=== PATIENT | female | born 1935 | race Caucasian/White ===

== ENCOUNTER → 2017-03-16 | Outpatient (CLI) | payer OTHER ==
[~2017-03-16] MED LIST: ASPIRIN81 M1 PO; Alphagan P 0.15% Oph BOTH EYES; Aspirin PO; CLEOCIN300 MG PO; CLINDAMYCIN HC300 MG PO; Calcium Carbonate,Ca PO; Cardizem CD,Cartia X PO; Colace PO; Coumadin Protocol PO; Ecotrin PO; Erythromycin Ophth O LEFT EYE; GLIPIZIDE10 MG PO; Glucophage PO; Humulin R SC; INVanz IV; KLOR-CON 1010 ME1 PO; LASIX40 MG PO; LEVOFLOXACIN; LISINOPRIL10 MG PO; Lasix PO; METFORMIN HCL PO; MULTIVITAMIN1 EAC2 PO; OMEGA 3-6-91200 MG PO; PRAVACHOL40 MG PO; Santyl TP; TENORMIN25 MG PO; TYLENOL REGULA325 MG PO; Tums,OsCal PO; WARFARIN SODIUM
== END | disposition home or self-care (01) ==
LOC: RAD 15:49
DX: M19.072 Primary osteoarthritis, left ankle and foot (principal); M25.475 Effusion, left foot
CPT/HCPCS: 73630

== ENCOUNTER 2017-06-09 17:24 | Observation (INO) | payer OTHER ==
[~2017-06-09] VITALS: Ht 167.6 cm; Wt 94.7 kg
[~2017-06-09 17:24] MED LIST changes: +ALPHAGAN P100 DROP/1 BOTH EYES; -Alphagan P 0.15% Oph BOTH EYES; +COLACE100 MG PO; -Calcium Carbonate,Ca PO; -Colace PO; +SUPER CALCIUM600 MG PO
[2017-06-09 20:56] LABS: HEMATOCRIT 39.6 % (36.0-46.0); HEMOGLOBIN 13.7 G/DL (11.9-15.5); MCH 31.2 PG (29.0-34.0); MCHC 34.6 G/DL (30.0-36.0); MCV 90.2 FL (83-99); PLATELET COUNT 333 K/uL (156-360); RBC DIS.WIDTH-SD 43.1 % (39-53); RED BLOOD COUNT 4.39 M/uL (3.80-5.20); WHITE BLOOD COUNT 13.5 K/uL (4.1-10.2)
[2017-06-09 21:10] LABS: CHLORIDE 103 mEq/L (99-109); POTASSIUM 4.1 mEq/L (3.7-5.4); SODIUM 140 mEq/L (136-147)
[2017-06-09 21:11] LABS: GLUCOSE 166 mg/dL (70-99)
[2017-06-09 21:15] LABS: GFR ESTIMATE (CALCULATED) 57 mL/min/
[2017-06-09 21:16] LABS: UREA NITROGEN (BUN) 18 mg/dL (9-23)
[2017-06-09] MEDS ORDERED: XARELTO20 MG PO (22:25)
[2017-06-09] MEDS ORDERED: METFORMIN HCL500 MG PO (22:26)
[2017-06-09] MEDS ORDERED: MICRO-K10 ME2 PO (22:26)
[2017-06-09] MEDS ORDERED: FUROSEMIDE40 MG PO (22:26)
[2017-06-09] MEDS ORDERED: PRAVACHOL10 MG PO (22:27)
[2017-06-09] MEDS ORDERED: AMOX TR-K CLV1 EAC4 PO (22:27)
[2017-06-09] MEDS ORDERED: LISINOPRIL2.5 MG PO (22:28)
[2017-06-09] MEDS ORDERED: CARDIZEM CD,CA180 MG PO (22:28)
[2017-06-09] MEDS ORDERED: LANTUS 3 M100 UNITS1 SC (22:29)
[2017-06-09] MEDS ORDERED: ALPHAGAN 0100 DROP/5 BOTH EYES (22:30)
[2017-06-09] MEDS ORDERED: LASIX40 MG PO (22:32)
[2017-06-09] MEDS ORDERED: VITAMIN B12 100MCG PO (22:36)
[2017-06-09 23:00] LABS: APPEARANCE SL.HAZY ((CLEAR)); BILIRUBIN NEGATIVE; BLOOD SMALL; COLOR YELLOW ((YELLOW)); GLUCOSE (STRIP) NEGATIVE; KETONES NEGATIVE; LEUKOCYTES MODERATE; NITRITE NEGATIVE; PROTEIN (STRIP) NEGATIVE; SPECIFIC GRAVITY 1.014 (1.000-1.030); UROBILINOGEN 0.2 MG/DL (0.2-1.0)
[2017-06-09 23:03] LABS: BACTERIA RARE /HPF; EPITHELIAL CELLS 2+ /HPF; HYALINE CASTS 15-20 /LPF; MUCUS 1+ /LPF
[2017-06-10 02:00] VITALS: BP 158/72
[2017-06-10 03:56] VITALS: BP 137/64
[2017-06-10 06:46] LABS: HEMATOCRIT 37.6 % (36.0-46.0); HEMOGLOBIN 12.5 G/DL (11.9-15.5); MCHC 33.2 G/DL (30.0-36.0); MCV 90.2 FL (83-99); PLATELET COUNT 335 K/uL (156-360); RBC DIS.WIDTH-CV 12.9 % (11.8-14.6); RBC DIS.WIDTH-SD 42.7 % (39-53); RED BLOOD COUNT 4.17 M/uL (3.80-5.20); WHITE BLOOD COUNT 10.6 K/uL (4.1-10.2)
[2017-06-10 07:15] LABS: CHLORIDE 103 MEQ/L (99-109); GFR ESTIMATE (CALCULATED) 57 mL/min/; POTASSIUM 4.3 MEQ/L (3.7-5.4); SODIUM 140 MEQ/L (136-147); UREA NITROGEN (BUN) 19 mg/dL (9-23)
[2017-06-10 07:18] LABS: GLUCOSE 268 mg/dL (70-99)
[2017-06-10 07:32] VITALS: BP 123/60
[2017-06-10 12:04] VITALS: BP 102/55
[2017-06-10 16:26] VITALS: BP 108/63
[2017-06-10 19:36] VITALS: BP 121/56
[2017-06-11] VITALS (7 sets, daily range): BP systolic 102–148; BP diastolic 51–67
[2017-06-12 03:44] VITALS: BP 95/51
[2017-06-12 03:47] VITALS: BP 143/63
[2017-06-12 07:02] VITALS: BP 119/57
[2017-06-12 10:55] VITALS: BP 99/63
== END 2017-06-12 15:08 ==
LOC: EME 17:24 → 2EASTP 22:49 → EDOF 22:49 → ENRESERV 22:53 → 2EASTP 06-10 01:33
PROVIDERS: Emergency Medicine; Hospitalist; Nurse Practitioner Adult Health
DX: M25.462 Effusion, left knee (principal); M25.062 Hemarthrosis, left knee; W18.30XA Fall on same level, unspecified, initial encounter; R26.89 Other abnormalities of gait and mobility; N39.0 Urinary tract infection, site not specified; I48.91 Unspecified atrial fibrillation; I10 Essential (primary) hypertension; E11.622 Type 2 diabetes mellitus with other skin ulcer; L89.893 Pressure ulcer of other site, stage 3; Z89.511 Acquired absence of right leg below knee; M17.12 Unilateral primary osteoarthritis, left knee; Z95.0 Presence of cardiac pacemaker; M11.262 Other chondrocalcinosis, left knee; Z86.19 Personal history of other infectious and parasitic diseases; M85.80 Other specified disorders of bone density and structure, unspecified site; I35.0 Nonrheumatic aortic (valve) stenosis; Z79.01 Long term (current) use of anticoagulants; E78.5 Hyperlipidemia, unspecified; Z79.4 Long term (current) use of insulin; Z83.3 Family history of diabetes mellitus; Z82.49 Family history of ischemic heart disease and other diseases of the circulatory system
CPT/HCPCS: 73564; 73700; 80048; 81003; 82948; 85027; 87086; 97530 GP; 99281; 99284; A6242; A6260; G0378; G8978 GP CM; G8979 GP CL; G8987 GO CL; G8988 GO CK; J0696; J1815

== ENCOUNTER 2017-06-12 15:35 | Inpatient (IN) | payer OTHER ==
[~2017-06-12] VITALS: Ht 162.6 cm; Wt 99.4 kg
[~2017-06-12 15:35] MED LIST changes: +ALPHAGAN 0100 DROP/5 BOTH EYES; +AMOX TR-K CLV1 EAC4 PO; +CARDIZEM CD,CA180 MG PO; +FUROSEMIDE40 MG PO; +LANTUS 3 M100 UNITS1 SC; +LISINOPRIL2.5 MG PO; +METFORMIN HCL500 MG PO; +MICRO-K10 ME2 PO; +PRAVACHOL10 MG PO; +VITAMIN B12 100MCG PO; +XARELTO20 MG PO
[2017-06-12 15:50] VITALS: BP 114/56
[2017-06-12 23:47] VITALS: BP 120/58
[2017-06-13 05:36] VITALS: BP 120/58
[2017-06-13 08:09] LABS: ALBUMIN 2.8 G/DL (3.2-4.8); ALKALINE PHOSPHATASE 80 IU/L (3-129); ALT (GPT) 11 IU/L (3-49); AST (GOT) 20 IU/L (2-34); CHLORIDE 100 MEQ/L (99-109); GFR ESTIMATE (CALCULATED) 57 mL/min/; GLUCOSE 95 mg/dL (70-99); POTASSIUM 4.2 MEQ/L (3.7-5.4); SODIUM 137 MEQ/L (136-147); TOTAL BILIRUBIN 0.6 MG/DL (0.0-1.0); TOTAL PROTEIN 6.2 G/DL (6.4-8.3); UREA NITROGEN (BUN) 19 mg/dL (9-23)
[2017-06-13 08:14] LABS: HEMATOCRIT 37.3 % (36.0-46.0); HEMOGLOBIN 12.4 G/DL (11.9-15.5); MCH 29.7 PG (29.0-34.0); MCHC 33.2 G/DL (30.0-36.0); MCV 89.4 FL (83-99); PLATELET COUNT 376 K/uL (156-360); RBC DIS.WIDTH-CV 12.9 % (11.8-14.6); RBC DIS.WIDTH-SD 42.4 % (39-53); RED BLOOD COUNT 4.17 M/uL (3.80-5.20); WHITE BLOOD COUNT 13.5 K/uL (4.1-10.2)
[2017-06-13 15:27] VITALS: BP 135/63
[2017-06-13 20:04] VITALS: BP 139/65
[2017-06-14 01:58] LABS: APPEARANCE CLEAR ((CLEAR)); BILIRUBIN NEGATIVE; BLOOD NEGATIVE; COLOR YELLOW ((YELLOW)); GLUCOSE (STRIP) 50; KETONES NEGATIVE; LEUKOCYTES NEGATIVE; NITRITE NEGATIVE; PROTEIN (STRIP) NEGATIVE; SPECIFIC GRAVITY 1.012 (1.000-1.030); UROBILINOGEN 0.2 MG/DL (0.2-1.0)
[2017-06-14 06:03] VITALS: BP 125/61
[2017-06-14 14:47] LABS: HEMATOCRIT 37.5 % (36.0-46.0); HEMOGLOBIN 12.6 G/DL (11.9-15.5); MCH 29.8 PG (29.0-34.0); MCHC 33.6 G/DL (30.0-36.0); MCV 88.7 FL (83-99); PLATELET COUNT 399 K/uL (156-360); RBC DIS.WIDTH-CV 12.8 % (11.8-14.6); RBC DIS.WIDTH-SD 41.9 % (39-53); RED BLOOD COUNT 4.23 M/uL (3.80-5.20); WHITE BLOOD COUNT 12.7 K/uL (4.1-10.2)
[2017-06-14 15:16] LABS: ALBUMIN 2.9 G/DL (3.2-4.8); ALKALINE PHOSPHATASE 84 IU/L (3-129); ALT (GPT) 12 IU/L (3-49); AST (GOT) 21 IU/L (2-34); CHLORIDE 102 MEQ/L (99-109); CREATININE 0.9 MG/DL (0.6-1.3); GFR ESTIMATE (CALCULATED) > 59 mL/min/; GLUCOSE 121 mg/dL (70-99); POTASSIUM 4.1 MEQ/L (3.7-5.4); SODIUM 137 MEQ/L (136-147); TOTAL PROTEIN 6.8 G/DL (6.4-8.3); UREA NITROGEN (BUN) 21 mg/dL (9-23)
[2017-06-14 15:17] LABS: TOTAL BILIRUBIN 0.8 MG/DL (0.0-1.0)
[2017-06-14 15:30] VITALS: BP 129/59
[2017-06-15 05:42] VITALS: BP 144/65
[2017-06-15 16:42] VITALS: BP 126/58
[2017-06-16 07:00] VITALS: BP 150/70
[2017-06-16 14:23] LABS: HEMATOCRIT 40.6 % (36.0-46.0); HEMOGLOBIN 13.4 G/DL (11.9-15.5); MCH 30.4 PG (29.0-34.0); MCV 92.1 FL (83-99); PLATELET COUNT 487 K/uL (156-360); RBC DIS.WIDTH-CV 12.8 % (11.8-14.6); RBC DIS.WIDTH-SD 43.3 % (39-53); RED BLOOD COUNT 4.41 M/uL (3.80-5.20); WHITE BLOOD COUNT 15.7 K/uL (4.1-10.2)
[2017-06-16 15:02] LABS: CHLORIDE 102 MEQ/L (99-109); GFR ESTIMATE (CALCULATED) 57 mL/min/; POTASSIUM 3.8 MEQ/L (3.7-5.4); SODIUM 139 MEQ/L (136-147); UREA NITROGEN (BUN) 25 mg/dL (9-23)
[2017-06-16 15:03] LABS: GLUCOSE 210 mg/dL (70-99)
[2017-06-16 17:08] VITALS: BP 133/58
[2017-06-17 05:21] VITALS: BP 133/62
[2017-06-17 15:49] VITALS: BP 116/56
[2017-06-18 06:38] VITALS: BP 119/56
[2017-06-18 15:08] VITALS: BP 131/61
[2017-06-19 05:29] VITALS: BP 146/65
[2017-06-19 15:47] VITALS: BP 110/51
[2017-06-20 06:02] VITALS: BP 139/65
[2017-06-20 15:24] VITALS: BP 130/62
[2017-06-20 16:32] LABS: HEMATOCRIT 36.2 % (36.0-46.0); MCH 30.1 PG (29.0-34.0); MCHC 33.1 G/DL (30.0-36.0); MCV 90.7 FL (83-99); PLATELET COUNT 481 K/uL (156-360); RBC DIS.WIDTH-CV 12.7 % (11.8-14.6); RBC DIS.WIDTH-SD 42.4 % (39-53); RED BLOOD COUNT 3.99 M/uL (3.80-5.20); WHITE BLOOD COUNT 11.3 K/uL (4.1-10.2)
[2017-06-20 16:57] LABS: CHLORIDE 104 MEQ/L (99-109); CREATININE 0.8 MG/DL (0.6-1.3); GFR ESTIMATE (CALCULATED) > 59 mL/min/; GLUCOSE 271 mg/dL (70-99); SODIUM 136 MEQ/L (136-147); UREA NITROGEN (BUN) 25 mg/dL (9-23)
[2017-06-21 04:59] VITALS: BP 147/62
[2017-06-21 16:19] VITALS: BP 125/58
[2017-06-22 06:14] VITALS: BP 140/66
[2017-06-22 16:22] VITALS: BP 122/56
[2017-06-23 06:04] VITALS: BP 116/57
[2017-06-23 15:19] VITALS: BP 107/62
[2017-06-24 05:56] VITALS: BP 110/56
[2017-06-24 15:10] VITALS: BP 106/57
[2017-06-25 06:31] VITALS: BP 121/56
[2017-06-25 15:54] VITALS: BP 105/54
[2017-06-26 05:20] VITALS: BP 122/59
[2017-06-26 15:20] VITALS: BP 108/56
[2017-06-27 04:56] VITALS: BP 119/59
[2017-06-27 15:31] VITALS: BP 116/55
[2017-06-28 04:18] VITALS: BP 153/67
[2017-06-28 06:04] LABS: BASOPHIL (%) 0.9 % (0-1); BASOPHIL COUNT 0.1 K/uL (0-0.1); EOSINOPHIL COUNT 0.4 K/uL (0-0.3); HEMATOCRIT 38.5 % (36.0-46.0); HEMOGLOBIN 12.6 G/DL (11.9-15.5); IMMATURE GRANULOCYTE (%) 0.3 % (0.0-0.7); LYMPHOCYTE (%) 25.8 % (15-42); LYMPHOCYTE COUNT 2.5 K/uL (1.0-2.8); MCH 29.6 PG (29.0-34.0); MCHC 32.7 G/DL (30.0-36.0); MCV 90.6 FL (83-99); MONOCYTE (%) 10.2 % (3-12); NEUTROPHIL (%) 58.8 % (45-76); NEUTROPHIL COUNT 5.6 K/uL (1.8-6.4); PLATELET COUNT 445 K/uL (156-360); RED BLOOD COUNT 4.25 M/uL (3.80-5.20); WHITE BLOOD COUNT 9.5 K/uL (4.1-10.2)
[2017-06-28 06:28] LABS: ALKALINE PHOSPHATASE 85 IU/L (3-129); ALT (GPT) 13 IU/L (3-49); AST (GOT) 16 IU/L (2-34); CHLORIDE 102 MEQ/L (99-109); CREATININE 0.9 MG/DL (0.6-1.3); GFR ESTIMATE (CALCULATED) > 59 mL/min/; GLUCOSE 203 mg/dL (70-99); POTASSIUM 4.5 MEQ/L (3.7-5.4); SODIUM 138 MEQ/L (136-147); TOTAL BILIRUBIN 0.4 MG/DL (0.0-1.0); TOTAL PROTEIN 5.8 G/DL (6.4-8.3); UREA NITROGEN (BUN) 34 mg/dL (9-23)
[2017-06-28 15:09] VITALS: BP 103/54
[2017-06-29 05:40] VITALS: BP 107/55
[2017-06-29 15:52] VITALS: BP 129/61
[2017-06-30 05:58] VITALS: BP 148/72
[2017-06-30 06:57] VITALS: BP 148/72
[2017-06-30 11:20] VITALS: BP 109/55
[2017-06-30 15:05] LABS: HEMATOCRIT 39.8 % (36.0-46.0); HEMOGLOBIN 13.4 G/DL (11.9-15.5); MCH 30.2 PG (29.0-34.0); MCHC 33.7 G/DL (30.0-36.0); MCV 89.6 FL (83-99); PLATELET COUNT 464 K/uL (156-360); RBC DIS.WIDTH-CV 13.1 % (11.8-14.6); RBC DIS.WIDTH-SD 42.7 % (39-53); RED BLOOD COUNT 4.44 M/uL (3.80-5.20); WHITE BLOOD COUNT 15.7 K/uL (4.1-10.2)
[2017-06-30 15:27] LABS: CHLORIDE 102 MEQ/L (99-109); GFR ESTIMATE (CALCULATED) 57 mL/min/; GLUCOSE 175 mg/dL (70-99); POTASSIUM 4.1 MEQ/L (3.7-5.4); SODIUM 139 MEQ/L (136-147); UREA NITROGEN (BUN) 29 mg/dL (9-23)
[2017-06-30 16:12] VITALS: BP 111/53
[2017-07-01 05:49] VITALS: BP 118/56
[2017-07-01 09:27] LABS: HEMATOCRIT 43.7 % (36.0-46.0); HEMOGLOBIN 14.2 G/DL (11.9-15.5); MCH 29.4 PG (29.0-34.0); MCHC 32.5 G/DL (30.0-36.0); MCV 90.5 FL (83-99); PLATELET COUNT 478 K/uL (156-360); RBC DIS.WIDTH-CV 13.1 % (11.8-14.6); RBC DIS.WIDTH-SD 43.6 % (39-53); RED BLOOD COUNT 4.83 M/uL (3.80-5.20)
[2017-07-01 09:50] LABS: CHLORIDE 99 MEQ/L (99-109); GFR ESTIMATE (CALCULATED) 57 mL/min/; GLUCOSE 260 mg/dL (70-99); POTASSIUM 4.2 MEQ/L (3.7-5.4); SODIUM 138 MEQ/L (136-147); UREA NITROGEN (BUN) 27 mg/dL (9-23)
[2017-07-01 15:14] VITALS: BP 100/55
[2017-07-02 04:51] VITALS: BP 114/55
[2017-07-02] MEDS ORDERED: PRAVASTATIN SOD40 MG PO (12:36)
[2017-07-02] MEDS ORDERED: XARELTO20 MG PO (12:36)
[2017-07-02] MEDS ORDERED: TYLENOL REGULA325 MG PO (12:37)
[2017-07-02] MEDS ORDERED: NOVOLOG 10100 UNITS/ SC (12:38)
[2017-07-02] MEDS ORDERED: COLACE100 MG PO (12:38)
[2017-07-02] MEDS ORDERED: LEVEMIR100 UNIT/2 SC (12:38)
[2017-07-02] MEDS ORDERED: HYDROCORTISONE30 G2 PR (12:39)
[2017-07-02] MEDS ORDERED: Zeasorb Antifungal T TP (12:39)
== END 2017-07-02 14:30 | DRG 559 ==
LOC: 3WEST 15:35
PROVIDERS: Nurse Practitioner Adult Health; Physical Medicine & Rehabilitation Pain Medicine; Psychiatry & Neurology Neurology
PROC: F07M0ZZ Range of Motion and Joint Mobility Treatment of Musculoskeletal System - Whole Body (ICD-10-PCS; principal; 2017-06-12)
DX: S82.142D Displaced bicondylar fracture of left tibia, subsequent encounter for closed fracture with routine healing (principal); S83.92XD Sprain of unspecified site of left knee, subsequent encounter; R26.2 Difficulty in walking, not elsewhere classified; W19.XXXD Unspecified fall, subsequent encounter; L89.893 Pressure ulcer of other site, stage 3; E83.51 Hypocalcemia; I48.91 Unspecified atrial fibrillation; I10 Essential (primary) hypertension; E11.9 Type 2 diabetes mellitus without complications; I35.0 Nonrheumatic aortic (valve) stenosis; F03.90 Unspecified dementia, unspecified severity, without behavioral disturbance, psychotic disturbance, mood disturbance, and anxiety; R41.0 Disorientation, unspecified; R30.0 Dysuria; M11.20 Other chondrocalcinosis, unspecified site; M17.12 Unilateral primary osteoarthritis, left knee; Z60.2 Problems related to living alone; Z89.511 Acquired absence of right leg below knee; Z79.01 Long term (current) use of anticoagulants; Z79.4 Long term (current) use of insulin; Z95.0 Presence of cardiac pacemaker
CPT/HCPCS: 70450; 71045; 74018; 80048; 80053; 81003; 82140; 82948; 84999; 85025; 85027; 87040; 87070; 87075; 87077; 87086; 87147; 87186; 87205; 87493; 97110 GO; 97530 GP; A6214; A6242; J1815; J7030